=== PATIENT | female | born 1975 | race Caucasian/White ===

== ENCOUNTER 2017-05-19 05:06 | Emergency (ER) | payer MEDICAID ==
[~2017-05-19] VITALS: Ht 170.2 cm; Wt 58.2 kg
[2017-05-19 05:10] VITALS: BP 122/84
[2017-05-19] MEDS ORDERED: PRED1 PO (05:17)
[2017-05-19] MEDS ORDERED: ALBU8HFA IH (05:17)
[2017-05-19] MEDS ORDERED: AZIT250T9 PO (05:17)
[2017-05-19] MEDS ORDERED: DiphenhydrAMINE HCL 50 MG CAPSULE PO ONE (06:30)
== END 2017-05-19 06:37 | disposition home or self-care (01) ==
LOC: EMS 05:08
DX: L50.9 Urticaria, unspecified (principal)
CPT/HCPCS: 99282

== ENCOUNTER 2017-07-22 10:20 | Emergency (ER) | payer SELFPAY ==
[~2017-07-22] VITALS: Ht 170.2 cm; Wt 59.1 kg
[~2017-07-22 10:20] MED LIST: ALBU8HFA IH; AZIT250T9 PO; PRED1 PO
[2017-07-22] MEDS ORDERED: IBUPROFEN 800 MG TABLET PO ONE (11:15)
[2017-07-22 12:15] VITALS: BP 130/60
== END 2017-07-22 12:29 | disposition home or self-care (01) ==
LOC: EMS 10:24
DX: S86.011A Strain of right Achilles tendon, initial encounter (principal); X50.9XXA Other and unspecified overexertion or strenuous movements or postures, initial encounter; Y93.51 Activity, roller skating (inline) and skateboarding; Y92.89 Other specified places as the place of occurrence of the external cause; Y99.8 Other external cause status
CPT/HCPCS: 29515; 99284